=== PATIENT | male | born 1985 | race Caucasian/White ===

== ENCOUNTER 2023-01-01 19:56 | Inpatient (IN) | payer MEDICAID ==
[~2023-01-01] VITALS: Ht 165.1 cm; Wt 68.0 kg
[2023-01-01 20:18] VITALS: BP_SYST 121
[2023-01-01 20:55] LABS: HEMATOCRIT 42.5 % (36-54); HEMOGLOBIN 13.9 g/dL (14.0-18.0); MEAN CORPUSCULAR HEMOGLOBIN 29 pg (27-31); MEAN CORPUSCULAR HGB CONC 33 % (32-36); MEAN CORPUSCULAR VOLUME 88 fL (79.0-98.0); PLATELET COUNT (AUTO) 366 K/uL (130-430); RED BLOOD CELL COUNT(AUTO) 4.86 MIL/uL (4.2-6.2); RED CELL DISTRIBUTION WIDTH 13.5 % (9.0-15.0); WHITE BLOOD COUNT (AUTO) 15.1 K/uL (4.8-10.8)
[2023-01-01 21:05] LABS: CREATININE 0.86 mg/dL (0.55-1.30)
[2023-01-01 21:17] LABS: ALBUMIN 2.2 g/dL (3.4-4.8); C-REACTIVE PROTEIN QUANT 12.3 mg/dL (0-0.5); TOTAL BILIRUBIN 0.4 mg/dL (0.0-1.0)
[2023-01-01 21:22] LABS: BAND % (MANUAL) 5 % (0-6); BASOPHILS % (MANUAL) 0 % (0-2); EOSINOPHILS % (MANUAL) 0 % (0-7); LYMPHOCYTES % (MANUAL) 13 % (20-46); MONOCYTES % (MANUAL) 17 % (0-11)
[2023-01-01] MEDS ORDERED: CLINDAMYCIN 600 MG in D5W 50 ML IV ONE (21:30)
[2023-01-01] MEDS ORDERED: POTASSIUM CHLORIDE 20 MEQ TAB.PRT.SR PO PRN (21:45)
[2023-01-01] MEDS ORDERED: LORazepam 2 MG/ML VIAL IVP PRN (21:45)
[2023-01-01] MEDS ORDERED: DOCUSATE SODIUM 100 MG CAPSULE PO PRN (21:45)
[2023-01-01] MEDS ORDERED: IBUPROFEN 800 MG TABLET PO PRN (21:45)
[2023-01-01] MEDS ORDERED: ACETAMINOPHEN 325 MG TABLET PO PRN (21:45)
[2023-01-01] MEDS ORDERED: MUPIROCIN 2% TOPICAL OINTMENT 22 GM NS PRN (21:45)
[2023-01-01] MEDS ORDERED: ONDANSETRON HCL 4 MG/2 ML VIAL IVP PRN (21:45)
[2023-01-01] MEDS ORDERED: MAGNESIUM SULFATE 50 ML IV PRN (21:45)
[2023-01-01] MEDS ORDERED: NACL 0.9% 1,000 ML IV ONE (21:45)
[2023-01-01] MEDS ORDERED: HYDROcodone/ACETAMIN 5-325 MG TAB (NORCO/ VICODIN) PO PRN (21:45)
[2023-01-01] MEDS ORDERED: ZOLPIDEM TARTRATE 5 MG TABLET PO PRN (21:45)
[2023-01-01] MEDS ORDERED: cefTRIAXone 1 GM in D5W 50 ML IV SCH (22:00)
[2023-01-02] MEDS ORDERED: cefTRIAXone 1 GM IVPB PREMIX 50 ML IV ONE (01:37)
[2023-01-02] MEDS ORDERED: CLINDAMYCIN 600 mg/50mL D5W 100 ML IV ONE (01:38)
[2023-01-02] MEDS ORDERED: CLINDAMYCIN 600 mg/50mL D5W 50 ML IV SCH (06:00)
[2023-01-02 07:27] LABS: BASOPHILS % (AUTO) 0.3 % (0.0-2.0); EOSINOPHILS # (AUTO) 0.2 K/uL (0.0-0.4); EOSINOPHILS % (AUTO) 1.4 % (0.0-4.0); HEMATOCRIT 38.6 % (36-54); LYMPHOCYTES # (AUTO) 1.5 K/uL (1.0-5.5); LYMPHOCYTES % (AUTO) 10.8 % (20.5-51.5); MEAN CORPUSCULAR HEMOGLOBIN 29 pg (27-31); MEAN CORPUSCULAR HGB CONC 34 % (32-36); MEAN CORPUSCULAR VOLUME 87 fL (79.0-98.0); MONOCYTES # (AUTO) 2.1 K/uL (0.0-1.0); MONOCYTES % (AUTO) 14.8 % (1.7-9.3); NEUTROPHILS # (AUTO) 10.2 K/uL (1.8-7.7); PLATELET COUNT (AUTO) 328 K/uL (130-430); RED BLOOD CELL COUNT(AUTO) 4.47 MIL/uL (4.2-6.2); RED CELL DISTRIBUTION WIDTH 13.5 % (9.0-15.0); WHITE BLOOD COUNT (AUTO) 14.1 K/uL (4.8-10.8)
[2023-01-02 07:30] LABS: NEUTROPHILS % (AUTO) 72.7 % (40.0-70.0)
[2023-01-02 07:47] LABS: CALCIUM 8.1 mg/dL (8.4-11.0); CREATININE 0.79 mg/dL (0.55-1.30)
[2023-01-02] MEDS ORDERED: SULF1TAB48 PO ×2 (08:29→18:53)
[2023-01-02] MEDS ORDERED: CLIN-142 PO ×2 (09:52→18:53)
[2023-01-02 15:33] VITALS: BP_SYST 135
== END 2023-01-02 23:01 | disposition home or self-care (01) | DRG 720 ==
LOC: SED 19:56 → SMU 21:51 → UNDODISIN 01-04 13:00
PROVIDERS: ADMIT General Practice; ATTEND General Practice
DX: A41.9 Sepsis, unspecified organism (principal); E43 Unspecified severe protein-calorie malnutrition; L03.116 Cellulitis of left lower limb; F17.200 Nicotine dependence, unspecified, uncomplicated; Z20.822 Contact with and (suspected) exposure to COVID-19; Z53.29 Procedure and treatment not carried out because of patient's decision for other reasons; Z90.49 Acquired absence of other specified parts of digestive tract; Z91.199 Patient's noncompliance with other medical treatment and regimen due to unspecified reason
CPT/HCPCS: 36415; 73552; 80048; 80053; 83037; 83605; 83735; 85007; 85025; 85027; 86140; 87040; 99285; J0696; J3490

== ENCOUNTER 2023-01-02 17:11 | Emergency (ER) | payer MEDICAID ==
[~2023-01-02] VITALS: Ht 177.8 cm; Wt 70.8 kg
[~2023-01-02 17:11] MED LIST: CLIN-142 PO; SULF1TAB48 PO
[2023-01-02 17:29] VITALS: BP_SYST 136
--- NOTE | 2023-01-02 17:35 | NUR ---
DR ABBOTT IN BEDSIDE TO SEE PT
--- NOTE | 2023-01-02 17:38 | NUR ---
PT PLACED IN WAITING [facility] PER DR ABBOTT. EKG NSR, READ BY DR ABBOTT. AMARILYS HERR.
[2023-01-02] MEDS ORDERED: CLIN-142 PO (18:53)
[2023-01-02] MEDS ORDERED: SULF1TAB48 PO (18:53)
[2023-01-02 19:03] VITALS: BP_SYST 136
--- NOTE | 2023-01-02 19:04 | NUR ---
Patient given written and verbal discharge instructions and verbalizes understanding. ER MD discussed with patient the results and treatment provided. Patient in stable condition. ID arm band removed. Rx of BACTRIM, CLINDAMYCIN given. Patient educated on pain management and to follow up with PMD. Pain Scale . Opportunity for questions provided and answered. Medication side effect fact sheet provided.
== END 2023-01-02 19:03 | disposition home or self-care (01) ==
LOC: SED 17:11
DX: Z76.0 Encounter for issue of repeat prescription (principal); R07.89 Other chest pain; Z79.899 Other long term (current) drug therapy
CPT/HCPCS: 93005; 99283